=== PATIENT | male | born 1955 | race Caucasian/White ===

== ENCOUNTER 2020-11-27 14:18 | Inpatient (IN) | payer MEDICARE ==
[~2020-11-27] VITALS: Ht 170.2 cm; Wt 98.2 kg
--- NOTE | 2020-11-27 14:31 | NUR ---
THIS IS A 65 YO M BIB EMS (FLIGHT) FROM [facility] W/ DX RT LOWER EXTREMITY DVT, INCRASED OXYGEN DEMAND FROM BASELINE, ELEVATED TROPONIN AND ELEVATED DDIMER. PT REPORTS HX COPD USING 3-4L NC AT HOME. ALSO REPORTS HX OF CKD. PT ARRIVED ON 15L NRB W/ O2 SAT 91%. HR 90'S, TACHPNEIC, OTHER VS WDL. EKG OBTAINED AND GIVEN TO . PER EMS PT RECEIVED LEVAQUIN AND SUBQ LOVENOX PRIOR TO TRANSFER.
[2020-11-27] MEDS ORDERED: LISI-167 PO (14:45)
[2020-11-27] MEDS ORDERED: ASPI81TA45 PO (14:45)
[2020-11-27] MEDS ORDERED: ISOS30TA21 PO (14:45)
[2020-11-27] MEDS ORDERED: AMLO-211 PO (14:45)
[2020-11-27] MEDS ORDERED: MELO15TA24 PO (14:45)
[2020-11-27] MEDS ORDERED: ATOR-2 PO (14:45)
[2020-11-27] MEDS ORDERED: GABA100C PO (14:45)
[2020-11-27] MEDS ORDERED: ALBU90AE INH (14:45)
[2020-11-27] MEDS ORDERED: FLUT1BLS3 IH (14:45)
[2020-11-27] MEDS ORDERED: PANT40TA3 PO (14:45)
--- NOTE | 2020-11-27 14:46 | NUR ---
PT TRIALED ON HOME O2. 83% ON 4L NC. REQUIRING 10-15L NRB TO MAINTAIN SAT 89-91%.
--- NOTE | 2020-11-27 15:00 | NUR ---
WHILE THIS RN ATTEMPTING REPEAT EKG PT STARTED UNCONTROLABLY COUGHING. PT SAT UP THEN APPEARED TO LOSE CONCIOUSNESS FOR 5-7 SECONDS AEB EYES ROLLING BACK. SLIGHT FLAILING OF ARMS. WHEN PATIENT AWOKE HE SUDDENLY SAT UP AND STATED " I DIDNT DO ANYTHING, I WAS ASLEEP!". PT TRYING TO TAKE MASK OFF. PT QUICKLY REORIENTED TO SITUATION. DENIES CP. ERP AWARE. 2ND EKG OBTAINED AND GIVEN TO .
--- NOTE | 2020-11-27 15:01 | NUR ---
PT MORE DIAPHORETIC AND TACHYPNEIC S/P VAGAL EPISODE.
[2020-11-27 15:27] LABS: TROPONIN I 0.191 ng/mL (0.000-0.045)
--- NOTE | 2020-11-27 15:37 | NUR ---
PT RESTING ON GURNEY W/ CALL LIGHT IN REACH AND SIDE RAILS UPX2. 2ND PIV ESTABLISHED. DUNCAN ROBERTS.
--- NOTE | 2020-11-27 15:41 | NUR ---
LABS HUMAN RESOURCES ANALYST: ABG PCO2: 27 ABG PO2: 46 (REF [id number]) ABG HCO3: 19 WBC: 10.2 POTASSIUM: 4.7 CREATININE: 2.0 BUN: 35 RAPID COVID NEGATIVE
--- NOTE | 2020-11-27 16:02 | NUR ---
PT TO VQ SCAN.
[2020-11-27] MEDS ORDERED: HEPARIN 25,000 UNITS/250ML PMX 250 ML IV PRN (16:30)
[2020-11-27] MEDS ORDERED: HEPARIN 5,000 UNITS/ML, 1ML IV PRN (16:30)
[2020-11-27] MEDS: HEPARIN 5,000 UNITS/ML, 1ML IV ONE ×2 (16:30→16:46)
[2020-11-27] MEDS ORDERED: HEPARIN 25,000 UNITS/250ML PMX 250 ML ONE (16:33)
[2020-11-27] MEDS ORDERED: HEPARIN 5,000 UNITS/ML, 1ML ONE (16:33)
--- NOTE | 2020-11-27 16:56 | NUR ---
SPOKE W/ [place] FROM PHARMACY REGARDING ANTI XA LEVEL 0.51, D/T PT RECEIVING 80MG LOVENOX SUBQ @1300 ADVISED TO CONSULT W/ . PER , HOLD BOLUS BUT CONTINUE W/ WEIGHT BASED PROTOCOL.
--- NOTE | 2020-11-27 16:59 | NUR ---
HEPARIN STARTED, VERIFIED W/ GIANNI ARMSTRONG.
--- NOTE | 2020-11-27 17:22 | NUR ---
PT TITRATED DOWN TO 10L NRB AT THIS TIME.
[2020-11-27] MEDS ORDERED: SODIUM CHLORIDE FLUSH 10ML SYR IVF PRN (17:30)
[2020-11-27] MEDS ORDERED: NITROGLYCERIN 0.4 MG BOTTLE (25 TABS) SL PRN (18:00)
[2020-11-27] MEDS ORDERED: ONDANSETRON 2MG/ML, 2ML IVPush PRN (18:00)
[2020-11-27] MEDS ORDERED: OXYcodone IR 5MG TABLET PO PRN (18:00)
[2020-11-27] MEDS ORDERED: hydrALAzine 20 MG/ML, 1ML IVPush PRN (18:00)
[2020-11-27] MEDS ORDERED: BISACODYL 10 MG SUPP PR PRN (18:00)
[2020-11-27] MEDS ORDERED: POLYETHYLENE GLYCOL 17 GM PACKET PO PRN (18:00)
--- NOTE | 2020-11-27 18:55 | NUR ---
REPORT TO HUAN ARMSTRONG. PT RESTING ON [employer] W/ CALL LIGHT IN REACH AND SIDE RAILS UPX2. RESP EVEN AND UNLABORED, DUNCAN.
--- NOTE | 2020-11-27 18:56 | NUR ---
Report received from NATHANIEL Agee. This RN to assume care.
--- NOTE | 2020-11-27 20:16 | NUR ---
Report given to NATHANIEL Meier. Patient to be transferred to room 509-1.
[2020-11-27] MEDS: ATORVASTATIN 40 MG TABLET PO SCH (21:00)
[2020-11-27] MEDS: SODIUM CHLORIDE FLUSH 10ML SYR IVF SCH (21:00)
[2020-11-27] MEDS: GABAPENTIN 100 MG CAPSULE PO SCH (22:27)
[2020-11-27 22:36] LABS: TROPONIN I 0.142 ng/mL (0.000-0.045)
[2020-11-28 02:25] VITALS: BP 115/71
[2020-11-28] MEDS: ALBUTEROL/IPRATROPIUM 2.5MG/0.5MG, 3 ML NPPB SCH ×3 (02:28→21:00)
[2020-11-28 04:07] LABS: ANION GAP 6 mmol/L (5-15); CALCIUM 9.2 mg/dL (8.5-10.1); CHLORIDE 106 mmol/L (98-107); CHOLESTEROL, TOTAL 130 mg/dL (140-239); CREATININE 1.55 mg/dL (0.7-1.3)
[2020-11-28 04:12] LABS: CHOL/HDL RATIO 3.9; HDL CHOL % 25 % (26-37); HDL CHOLESTEROL (DIRECT) 33 mg/dL (40-60); LDL CHOLESTEROL,CALCULATED 73 mg/dL (54-169); LDL/HDL RATIO 2.2 (0.5-3.0); TRIGLYCERIDES 119 mg/dL (50-200); TROPONIN I 0.125 ng/mL (0.000-0.045); VLDL CHOLESTEROL 24 mg/dL (0-25)
[2020-11-28 06:17] LABS: BASOPHILS % (AUTO) 1 % (0-1); EOSINOPHILS % (AUTO) 1 % (1-7); LYMPHOCYTES % (AUTO) 10 % (22-44); MEAN CORPUSCULAR HEMOGLOBIN 31.3 pg (27.5-34.5); MEAN CORPUSCULAR HGB CONC 33.5 g/dL (33.2-36.2); MEAN PLATELET VOLUME 8.3 fL (7.4-10.4); MONOCYTES % (AUTO) 8 % (2-9); NEUTROPHILS % (AUTO) 80 % (42-75); PLATELET COUNT 201 x10^3/uL (130-400); RED BLOOD COUNT 5.27 x10^6/uL (4.38-5.82); RED CELL DISTRIBUTION WIDTH 14.5 % (9.4-14.8)
[2020-11-28] MEDS ORDERED: PANTOPRAZOLE 40MG TABLET PO SCH (07:00)
[2020-11-28] MEDS: GABAPENTIN 100 MG CAPSULE PO SCH ×2 (08:15→21:30)
[2020-11-28] MEDS: SENNA/DOCUSATE TABLET PO SCH (08:15)
[2020-11-28] MEDS: SODIUM CHLORIDE FLUSH 10ML SYR IVF SCH ×2 (08:15→21:31)
[2020-11-28] MEDS: ASPIRIN 81 MG TABLET EC PO SCH (08:15)
[2020-11-28] MEDS: MELOXICAM 15 MG TABLET PO SCH (08:15)
[2020-11-28] MEDS ORDERED: LISINOPRIL 20 MG TABLET PO SCH (09:00)
[2020-11-28] MEDS ORDERED: AMLODIPINE 10 MG TAB PO SCH (09:00)
[2020-11-28] MEDS ORDERED: ISOSORBIDE MONONITRATE ER 30 MG TABLET PO SCH (09:00)
[2020-11-28 09:43] VITALS: BP 99/63
[2020-11-28] MEDS ORDERED: ALTEPLASE 10 MG in SODIUM CHLORIDE 0.9% 240 ML IV ONE (10:30)
[2020-11-28] MEDS ORDERED: MIDAZOLAM 1 MG/ML, 2ML ONE (13:29)
[2020-11-28] MEDS ORDERED: LIDOCAINE 2%, 20ML ONE (13:29)
[2020-11-28] MEDS ORDERED: FENTANYL PF 100 MCG/2ML ONE (13:29)
[2020-11-28] MEDS ORDERED: SODIUM CHLORIDE FLUSH 3ML SYRINGE IVF PRN (14:30)
[2020-11-28] MEDS ORDERED: Heparin 1000 units/500 ml 500 ML IV SCH ×2 (14:30→16:23)
[2020-11-28] MEDS ORDERED: SODIUM CHLORIDE 0.9% 1,000 ML IV SCH (14:30)
[2020-11-28] MEDS: BUDESONIDE 0.5 MG/2 ML INHA INH SCH ×2 (15:33→21:00)
[2020-11-28] MEDS ORDERED: HEPARIN 25,000 UNITS/250ML PMX 250 ML IV PRN (16:23)
[2020-11-28] MEDS ORDERED: APIXABAN 5 MG TABLET PO SCH ×2 (18:00→21:00)
[2020-11-28] MEDS: APIXABAN 5 MG TABLET PO SCH (18:00)
[2020-11-28] MEDS: ATORVASTATIN 40 MG TABLET PO SCH (21:31)
[2020-11-28] MEDS ORDERED: LORazepam 2 MG/ML, 1ML IVPush ONE (23:30)
[2020-11-28] MEDS ORDERED: LORazepam 2 MG/ML, 1ML ONE (23:33)
[2020-11-29 00:02] LABS: BASOPHILS % (AUTO) 1 % (0-1); EOSINOPHILS % (AUTO) 0 % (1-7); LYMPHOCYTES % (AUTO) 5 % (22-44); MEAN CORPUSCULAR HEMOGLOBIN 31.1 pg (27.5-34.5); MEAN CORPUSCULAR HGB CONC 33.2 g/dL (33.2-36.2); MEAN PLATELET VOLUME 8.1 fL (7.4-10.4); MONOCYTES % (AUTO) 7 % (2-9); NEUTROPHILS % (AUTO) 88 % (42-75); PLATELET COUNT 182 x10^3/uL (130-400); RED BLOOD COUNT 4.94 x10^6/uL (4.38-5.82); RED CELL DISTRIBUTION WIDTH 14.1 % (9.4-14.8)
[2020-11-29] MEDS ORDERED: MIDAZOLAM 1 MG/ML, 5ML IVPush ONE (00:13)
[2020-11-29] MEDS ORDERED: ROCURONIUM 10 MG/ML,10ML IVPush ONE (00:14)
[2020-11-29] MEDS ORDERED: PROPOFOL 10 MG/ML, 20ML IV ONE (00:14)
[2020-11-29 00:27] LABS: FIBRINOGEN 396 mg/dL (200-340)
[2020-11-29] MEDS ORDERED: PHARMACY MAY ADJ FOR RENAL FX MC SCH (00:30)
[2020-11-29] MEDS ORDERED: SENNA 176 MG/5 ML ORAL SOL NG PRN (00:30)
[2020-11-29] MEDS ORDERED: SENNA/DOCUSATE TABLET NG PRN (00:30)
[2020-11-29] MEDS ORDERED: BISACODYL 10 MG SUPP PR PRN (00:30)
[2020-11-29] MEDS ORDERED: LIDOCAINE-MPF 1%, 2ML ENDO PRN (00:30)
[2020-11-29] MEDS ORDERED: LACTULOSE 20 GM/30 ML UDC NG PRN (00:30)
[2020-11-29] MEDS: PROPOFOL 100 ML IV PRN ×2 (00:47→19:19)
[2020-11-29 01:17] LABS: ANION GAP 8 mmol/L (5-15); CALCIUM 8.6 mg/dL (8.5-10.1); CHLORIDE 106 mmol/L (98-107); CREATININE 1.25 mg/dL (0.7-1.3); TRIGLYCERIDES 100 mg/dL (50-200)
[2020-11-29] MEDS ORDERED: ALBUTEROL-IPRATROPIUM MDI INH INH SCH (03:00)
[2020-11-29 04:26] LABS: BASOPHILS % (AUTO) 0 % (0-1); EOSINOPHILS % (AUTO) 0 % (1-7); LYMPHOCYTES % (AUTO) 3 % (22-44); MEAN CORPUSCULAR HEMOGLOBIN 31.2 pg (27.5-34.5); MEAN PLATELET VOLUME 8.6 fL (7.4-10.4); MONOCYTES % (AUTO) 7 % (2-9); NEUTROPHILS % (AUTO) 89 % (42-75); PLATELET COUNT 205 x10^3/uL (130-400); RED BLOOD COUNT 5.01 x10^6/uL (4.38-5.82); RED CELL DISTRIBUTION WIDTH 14.1 % (9.4-14.8)
[2020-11-29 04:43] LABS: CHLORIDE 106 mmol/L (98-107)
[2020-11-29 05:00] LABS: ALANINE AMINOTRANSFERASE 24 U/L (12-78); ALBUMIN 2.6 g/dL (3.4-5.0); ALKALINE PHOSPHATASE 76 U/L (45-117); ANION GAP 6 mmol/L (5-15); BILIRUBIN,TOTAL 1.6 mg/dL (0.2-1.0); CALCIUM 8.7 mg/dL (8.5-10.1); CREATININE 1.39 mg/dL (0.7-1.3); TOTAL PROTEIN 7.2 g/dL (6.4-8.2)
[2020-11-29] MEDS ORDERED: PROPOFOL 10 MG/ML, 100ML IV ONE (05:10)
[2020-11-29] MEDS ORDERED: MIDAZOLAM 1 MG/ML, 5ML ONE (05:10)
[2020-11-29] MEDS ORDERED: ROCURONIUM 10MG/ML,5ML ONE (05:10)
[2020-11-29] MEDS ORDERED: PROPOFOL 10 MG/ML, 20ML ONE (05:10)
[2020-11-29] MEDS ORDERED: SODIUM CHLORIDE 0.9%, 500ML IVBOLUS ONE (05:30)
[2020-11-29] MEDS ORDERED: PANTOPRAZOLE 40 MG IV ONE (05:42)
[2020-11-29] MEDS: PANTOPRAZOLE 40 MG IV IVPush SCH ×2 (05:45→18:17)
[2020-11-29] MEDS: ALBUTEROL/IPRATROPIUM 2.5MG/0.5MG, 3 ML HHN SCH ×3 (09:00→20:05)
[2020-11-29] MEDS ORDERED: FLUTICASONE/VILANTEROL 100-25MCG/INH INH SCH (09:00)
[2020-11-29 10:42] LABS: BASOPHILS % (AUTO) 0 % (0-1); EOSINOPHILS % (AUTO) 0 % (1-7); LYMPHOCYTES % (AUTO) 7 % (22-44); MEAN CORPUSCULAR HEMOGLOBIN 30.8 pg (27.5-34.5); MEAN CORPUSCULAR HGB CONC 32.7 g/dL (33.2-36.2); MEAN PLATELET VOLUME 8.4 fL (7.4-10.4); MONOCYTES % (AUTO) 7 % (2-9); NEUTROPHILS % (AUTO) 86 % (42-75); PLATELET COUNT 201 x10^3/uL (130-400); RED BLOOD COUNT 4.64 x10^6/uL (4.38-5.82); RED CELL DISTRIBUTION WIDTH 14.6 % (9.4-14.8)
[2020-11-29] MEDS: SODIUM ZIRCONIUM CYCLOSILICATE 10 GM PO SCH ×2 (11:01→20:16)
[2020-11-29] MEDS: GABAPENTIN 100 MG CAPSULE PO SCH ×2 (11:01→20:16)
[2020-11-29] MEDS: APIXABAN 5 MG TABLET PO SCH ×2 (11:01→20:16)
[2020-11-29] MEDS: ASPIRIN 81 MG TABLET EC PO SCH (11:01)
[2020-11-29] MEDS: SENNA/DOCUSATE TABLET PO SCH (11:01)
[2020-11-29] MEDS: MELOXICAM 15 MG TABLET PO SCH (11:01)
[2020-11-29 11:13] LABS: FIBRINOGEN 442 mg/dL (200-340)
[2020-11-29] MEDS: SODIUM CHLORIDE FLUSH 10ML SYR IVF SCH ×2 (11:16→19:17)
--- NOTE | 2020-11-29 11:48 | NUR ---
TF recs if needed: Vital HP with end goal rate of 50 mL/hr (ON propofol); 60 mL/hr (OFF propofol). Addendum: 11/29/20 at [address] Amended: Links added.
[2020-11-29] MEDS: BUDESONIDE 0.5 MG/2 ML INHA INH SCH ×2 (13:05→20:06)
[2020-11-29] MEDS: NOREPINEPHRINE 8 MG in SODIUM CHLORIDE 0.9% 242 ML IV PRN (14:10)
[2020-11-29] MEDS: SODIUM CHLORIDE 0.9% 1,000 ML IV SCH (14:15)
[2020-11-29] MEDS: FENTANYL PF 100 MCG/2ML IVPush PRN (15:55)
[2020-11-29] MEDS: ATORVASTATIN 40 MG TABLET PO SCH (20:16)
[2020-11-30] MEDS: SODIUM CHLORIDE 0.9% 1,000 ML IV SCH ×3 (00:23→18:54)
[2020-11-30] MEDS: PROPOFOL 100 ML IV PRN ×5 (01:23→23:13)
[2020-11-30] MEDS: ALBUTEROL/IPRATROPIUM 2.5MG/0.5MG, 3 ML HHN SCH ×4 (01:50→20:18)
[2020-11-30 03:28] LABS: BASOPHILS % (AUTO) 1 % (0-1); EOSINOPHILS % (AUTO) 2 % (1-7); LYMPHOCYTES % (AUTO) 8 % (22-44); MEAN CORPUSCULAR HEMOGLOBIN 31.3 pg (27.5-34.5); MEAN CORPUSCULAR HGB CONC 33.2 g/dL (33.2-36.2); MEAN PLATELET VOLUME 8.3 fL (7.4-10.4); MONOCYTES % (AUTO) 8 % (2-9); NEUTROPHILS % (AUTO) 82 % (42-75); PLATELET COUNT 191 x10^3/uL (130-400); RED BLOOD COUNT 4.22 x10^6/uL (4.38-5.82); RED CELL DISTRIBUTION WIDTH 14.3 % (9.4-14.8)
[2020-11-30 03:30] LABS: ANION GAP 7 mmol/L (5-15); CALCIUM 8.4 mg/dL (8.5-10.1); CHLORIDE 111 mmol/L (98-107); CREATININE 1.42 mg/dL (0.7-1.3)
[2020-11-30] MEDS: PANTOPRAZOLE 40 MG IV IVPush SCH ×2 (05:49→18:55)
[2020-11-30] MEDS: BUDESONIDE 0.5 MG/2 ML INHA INH SCH ×2 (09:00→20:18)
[2020-11-30] MEDS: SODIUM CHLORIDE FLUSH 10ML SYR IVF SCH ×2 (09:00→21:04)
[2020-11-30] MEDS ORDERED: ASPIRIN 81 MG TABLET CHEW ONE (10:22)
[2020-11-30] MEDS: MELOXICAM 15 MG TABLET PO SCH (10:32)
[2020-11-30] MEDS: SENNA/DOCUSATE TABLET PO SCH (10:32)
[2020-11-30] MEDS: APIXABAN 5 MG TABLET PO SCH ×2 (10:32→21:04)
[2020-11-30] MEDS: GABAPENTIN 100 MG CAPSULE PO SCH ×2 (10:33→21:04)
[2020-11-30] MEDS: ASPIRIN 81 MG TABLET EC PO SCH (10:34)
[2020-11-30] MEDS: ATORVASTATIN 40 MG TABLET PO SCH (21:04)
[2020-11-30] MEDS: FENTANYL PF 100 MCG/2ML IVPush PRN (23:15)
[2020-12-01] MEDS: ALBUTEROL/IPRATROPIUM 2.5MG/0.5MG, 3 ML HHN SCH ×4 (01:30→19:41)
[2020-12-01 04:16] LABS: BASOPHILS % (AUTO) 1 % (0-1); EOSINOPHILS % (AUTO) 1 % (1-7); LYMPHOCYTES % (AUTO) 6 % (22-44); MEAN CORPUSCULAR HEMOGLOBIN 31.1 pg (27.5-34.5); MEAN CORPUSCULAR HGB CONC 32.9 g/dL (33.2-36.2); MEAN PLATELET VOLUME 8.3 fL (7.4-10.4); MONOCYTES % (AUTO) 7 % (2-9); NEUTROPHILS % (AUTO) 85 % (42-75); PLATELET COUNT 216 x10^3/uL (130-400); RED BLOOD COUNT 4.31 x10^6/uL (4.38-5.82); RED CELL DISTRIBUTION WIDTH 14.1 % (9.4-14.8)
[2020-12-01 04:22] LABS: ANION GAP 7 mmol/L (5-15); CALCIUM 8.3 mg/dL (8.5-10.1); CHLORIDE 112 mmol/L (98-107); CREATININE 1.23 mg/dL (0.7-1.3)
[2020-12-01] MEDS: PROPOFOL 100 ML IV PRN ×5 (04:30→23:30)
[2020-12-01] MEDS: SODIUM CHLORIDE 0.9% 1,000 ML IV SCH (06:25)
[2020-12-01] MEDS: PANTOPRAZOLE 40 MG IV IVPush SCH ×2 (06:25→18:12)
[2020-12-01] MEDS: BUDESONIDE 0.5 MG/2 ML INHA INH SCH ×2 (07:10→19:41)
[2020-12-01] MEDS ORDERED: ASPIRIN 81 MG TABLET CHEW ONE (09:00)
[2020-12-01] MEDS: SODIUM CHLORIDE FLUSH 10ML SYR IVF SCH ×2 (09:00→21:12)
[2020-12-01] MEDS: PIPERACILLIN/TAZO 4.5 GM in DEXTROSE 5% 100 ML IV SCH ×3 (09:13→23:31)
[2020-12-01] MEDS: GABAPENTIN 100 MG CAPSULE PO SCH ×2 (09:14→21:12)
[2020-12-01] MEDS: APIXABAN 5 MG TABLET PO SCH ×2 (09:14→21:12)
[2020-12-01] MEDS: SENNA/DOCUSATE TABLET PO SCH (09:14)
[2020-12-01] MEDS: MELOXICAM 15 MG TABLET PO SCH (09:14)
[2020-12-01] MEDS: ACETAMINOPHEN 325 MG TABLET PO PRN (09:14)
[2020-12-01] MEDS: ASPIRIN 81 MG TABLET EC PO SCH (09:15)
[2020-12-01] MEDS: NOREPINEPHRINE 8 MG in SODIUM CHLORIDE 0.9% 242 ML IV PRN (12:22)
[2020-12-01] MEDS: ATORVASTATIN 40 MG TABLET PO SCH (21:12)
[2020-12-02] MEDS: ALBUTEROL/IPRATROPIUM 2.5MG/0.5MG, 3 ML HHN SCH ×4 (02:39→18:47)
[2020-12-02 04:45] LABS: BASOPHILS % (AUTO) 1 % (0-1); EOSINOPHILS % (AUTO) 3 % (1-7); LYMPHOCYTES % (AUTO) 5 % (22-44); MEAN CORPUSCULAR HEMOGLOBIN 31.5 pg (27.5-34.5); MEAN CORPUSCULAR HGB CONC 33.5 g/dL (33.2-36.2); MEAN PLATELET VOLUME 8.2 fL (7.4-10.4); MONOCYTES % (AUTO) 7 % (2-9); NEUTROPHILS % (AUTO) 85 % (42-75); PLATELET COUNT 242 x10^3/uL (130-400); RED BLOOD COUNT 4.29 x10^6/uL (4.38-5.82); RED CELL DISTRIBUTION WIDTH 14.5 % (9.4-14.8)
[2020-12-02 04:53] LABS: ANION GAP 6 mmol/L (5-15); CALCIUM 8.4 mg/dL (8.5-10.1); CHLORIDE 113 mmol/L (98-107); CREATININE 1.06 mg/dL (0.7-1.3); TRIGLYCERIDES 136 mg/dL (50-200)
[2020-12-02] MEDS: PANTOPRAZOLE 40 MG IV IVPush SCH ×2 (05:06→17:57)
[2020-12-02] MEDS: PROPOFOL 100 ML IV PRN ×4 (05:38→23:18)
[2020-12-02] MEDS: BUDESONIDE 0.5 MG/2 ML INHA INH SCH ×2 (06:36→18:47)
[2020-12-02] MEDS: ACETAMINOPHEN 325 MG TABLET PO PRN (06:45)
[2020-12-02] MEDS: PIPERACILLIN/TAZO 4.5 GM in DEXTROSE 5% 100 ML IV SCH ×3 (08:18→23:17)
[2020-12-02] MEDS: GABAPENTIN 100 MG CAPSULE PO SCH ×2 (08:50→20:12)
[2020-12-02] MEDS: MELOXICAM 15 MG TABLET PO SCH (08:50)
[2020-12-02] MEDS: SENNA/DOCUSATE TABLET PO SCH (08:50)
[2020-12-02] MEDS: APIXABAN 5 MG TABLET PO SCH ×2 (08:50→20:12)
[2020-12-02] MEDS: SODIUM CHLORIDE FLUSH 10ML SYR IVF SCH ×2 (08:51→20:12)
[2020-12-02] MEDS ORDERED: ASPIRIN 81 MG TABLET CHEW PO SCH ×2 (09:00)
--- NOTE | 2020-12-02 15:05 | NUR ---
TF per RD recs: Vital HP with end goal rate of 50 mL/hr (ON propofol); 60 mL/hr (OFF propofol) Addendum: 12/02/20 at [address] Amended: Links added.
[2020-12-02] MEDS: ATORVASTATIN 40 MG TABLET PO SCH (20:12)
[2020-12-03] MEDS: ALBUTEROL/IPRATROPIUM 2.5MG/0.5MG, 3 ML HHN SCH (01:18)
[2020-12-03] MEDS ORDERED: AMIODARONE 150 MG in DEXTROSE 5% 100 ML IV ONE ×2 (05:00→09:00)
[2020-12-03] MEDS ORDERED: FILTER 0.22 MICRON IV PRN (05:00)
[2020-12-03 05:20] LABS: BASOPHILS % (AUTO) 1 % (0-1); EOSINOPHILS % (AUTO) 3 % (1-7); LYMPHOCYTES % (AUTO) 5 % (22-44); MEAN CORPUSCULAR HEMOGLOBIN 31.4 pg (27.5-34.5); MEAN CORPUSCULAR HGB CONC 33.4 g/dL (33.2-36.2); MEAN PLATELET VOLUME 8.2 fL (7.4-10.4); MONOCYTES % (AUTO) 7 % (2-9); NEUTROPHILS % (AUTO) 84 % (42-75); PLATELET COUNT 254 x10^3/uL (130-400); RED CELL DISTRIBUTION WIDTH 14.6 % (9.4-14.8)
[2020-12-03] MEDS: AMIODARONE 450 MG in DEXTROSE 5% 241 ML IV PRN ×2 (05:26→16:07)
[2020-12-03] MEDS: ACETAMINOPHEN 325 MG TABLET PO PRN ×2 (05:29→22:25)
[2020-12-03] MEDS: PANTOPRAZOLE 40 MG IV IVPush SCH ×2 (05:29→18:18)
[2020-12-03 05:34] LABS: ANION GAP 5 mmol/L (5-15); CALCIUM 8.8 mg/dL (8.5-10.1); CHLORIDE 112 mmol/L (98-107); CREATININE 1.06 mg/dL (0.7-1.3)
[2020-12-03] MEDS: SENNA/DOCUSATE TABLET PO SCH (08:09)
[2020-12-03] MEDS: GABAPENTIN 100 MG CAPSULE PO SCH ×2 (08:09→20:06)
[2020-12-03] MEDS: PIPERACILLIN/TAZO 4.5 GM in DEXTROSE 5% 100 ML IV SCH ×2 (08:09→16:07)
[2020-12-03] MEDS: MELOXICAM 15 MG TABLET PO SCH (08:10)
[2020-12-03] MEDS: APIXABAN 5 MG TABLET PO SCH ×2 (08:10→20:06)
[2020-12-03] MEDS: SODIUM CHLORIDE FLUSH 10ML SYR IVF SCH (08:10)
[2020-12-03] MEDS ORDERED: AMIODARONE 50 MG/ML, 3ML IVPush ONE (09:00)
[2020-12-03] MEDS: BUDESONIDE 0.5 MG/2 ML INHA INH SCH ×2 (09:00→18:33)
[2020-12-03] MEDS: PROPOFOL 100 ML IV PRN ×2 (13:23→20:06)
[2020-12-03] MEDS: ATORVASTATIN 40 MG TABLET PO SCH (20:05)
[2020-12-04] MEDS: PIPERACILLIN/TAZO 4.5 GM in DEXTROSE 5% 100 ML IV SCH (00:08)
[2020-12-04] MEDS: PROPOFOL 100 ML IV PRN ×4 (03:36→20:41)
[2020-12-04] MEDS: PANTOPRAZOLE 40 MG IV IVPush SCH ×2 (05:14→17:07)
[2020-12-04 05:20] LABS: BASOPHILS % (AUTO) 1 % (0-1); EOSINOPHILS % (AUTO) 4 % (1-7); LYMPHOCYTES % (AUTO) 4 % (22-44); MEAN CORPUSCULAR HEMOGLOBIN 30.9 pg (27.5-34.5); MEAN PLATELET VOLUME 8.3 fL (7.4-10.4); MONOCYTES % (AUTO) 7 % (2-9); NEUTROPHILS % (AUTO) 84 % (42-75); PLATELET COUNT 293 x10^3/uL (130-400); RED BLOOD COUNT 4.14 x10^6/uL (4.38-5.82); RED CELL DISTRIBUTION WIDTH 14.7 % (9.4-14.8)
[2020-12-04 05:28] LABS: ANION GAP 4 mmol/L (5-15); CALCIUM 8.7 mg/dL (8.5-10.1); CHLORIDE 108 mmol/L (98-107); CREATININE 1.03 mg/dL (0.7-1.3)
[2020-12-04] MEDS: BUDESONIDE 0.5 MG/2 ML INHA INH SCH ×2 (06:30→19:22)
[2020-12-04] MEDS ORDERED: INSULIN LISPRO 100 UNITS/ML, PEN SQ-INSULIN SCH (07:00)
[2020-12-04] MEDS ORDERED: FILTER 0.22 MICRON IV PRN (08:32)
[2020-12-04] MEDS: INSULIN LISPRO 100 UNITS/ML, PEN SQ-INSULIN SCH ×3 (09:00→19:54)
[2020-12-04] MEDS ORDERED: AMIODARONE 450 MG in DEXTROSE 5% 241 ML IV PRN (09:00)
[2020-12-04] MEDS: MEROPENEM 1 GM in SODIUM CHLORIDE 0.9% 100 ML IV SCH ×2 (09:36→17:07)
[2020-12-04] MEDS: APIXABAN 5 MG TABLET PO SCH ×2 (09:37→19:52)
[2020-12-04] MEDS: MELOXICAM 15 MG TABLET PO SCH (09:37)
[2020-12-04] MEDS: SENNA/DOCUSATE TABLET PO SCH (09:37)
[2020-12-04] MEDS: AMIODARONE 200 MG TABLET PO SCH ×2 (09:38→19:52)
[2020-12-04] MEDS: GABAPENTIN 100 MG CAPSULE PO SCH ×2 (09:38→19:52)
[2020-12-04] MEDS: FUROSEMIDE 40 MG/4 ML IV SCH (17:07)
[2020-12-04] MEDS: ATORVASTATIN 40 MG TABLET PO SCH (19:52)
[2020-12-04] MEDS: POTASSIUM CHLORIDE 10% 20 MEQ/15 ML UDC PO SCH (19:56)
[2020-12-05] MEDS: PROPOFOL 100 ML IV PRN ×4 (00:41→17:33)
[2020-12-05] MEDS: MEROPENEM 1 GM in SODIUM CHLORIDE 0.9% 100 ML IV SCH ×3 (01:08→17:36)
[2020-12-05] MEDS: INSULIN LISPRO 100 UNITS/ML, PEN SQ-INSULIN SCH ×4 (04:10→22:13)
[2020-12-05 04:25] LABS: BASOPHILS % (AUTO) 0 % (0-1); EOSINOPHILS % (AUTO) 5 % (1-7); LYMPHOCYTES % (AUTO) 7 % (22-44); MEAN CORPUSCULAR HEMOGLOBIN 30.9 pg (27.5-34.5); MEAN CORPUSCULAR HGB CONC 33.3 g/dL (33.2-36.2); MEAN PLATELET VOLUME 8.5 fL (7.4-10.4); MONOCYTES % (AUTO) 9 % (2-9); NEUTROPHILS % (AUTO) 79 % (42-75); PLATELET COUNT 307 x10^3/uL (130-400); RED BLOOD COUNT 4.23 x10^6/uL (4.38-5.82); RED CELL DISTRIBUTION WIDTH 14.6 % (9.4-14.8)
[2020-12-05 04:33] LABS: ANION GAP 5 mmol/L (5-15); CALCIUM 8.8 mg/dL (8.5-10.1); CHLORIDE 111 mmol/L (98-107); CREATININE 0.97 mg/dL (0.7-1.3)
[2020-12-05 04:34] LABS: TRIGLYCERIDES 183 mg/dL (50-200)
[2020-12-05] MEDS: PANTOPRAZOLE 40 MG IV IVPush SCH ×2 (06:24→17:33)
[2020-12-05] MEDS: BUDESONIDE 0.5 MG/2 ML INHA INH SCH ×2 (06:43→19:15)
[2020-12-05] MEDS: FUROSEMIDE 40 MG/4 ML IV SCH ×2 (08:15→17:33)
[2020-12-05] MEDS: SENNA/DOCUSATE TABLET PO SCH (08:34)
[2020-12-05] MEDS: APIXABAN 5 MG TABLET PO SCH ×2 (09:10→22:22)
[2020-12-05] MEDS: AMIODARONE 200 MG TABLET PO SCH ×2 (09:10→22:23)
[2020-12-05] MEDS: MELOXICAM 15 MG TABLET PO SCH (09:10)
[2020-12-05] MEDS: GABAPENTIN 100 MG CAPSULE PO SCH ×2 (09:11→22:22)
[2020-12-05] MEDS: POTASSIUM CHLORIDE 10% 20 MEQ/15 ML UDC PO SCH ×2 (09:11→22:22)
[2020-12-05] MEDS: ACETAMINOPHEN 325 MG TABLET PO PRN (10:54)
[2020-12-05] MEDS: MIDODRINE 5 MG TABLET PO SCH ×3 (11:56→22:22)
[2020-12-05] MEDS ORDERED: ALBUMIN HUMAN 25% 100 ML IV ONE (12:00)
[2020-12-05] MEDS: ATORVASTATIN 40 MG TABLET PO SCH (22:22)
[2020-12-06] MEDS: MEROPENEM 1 GM in SODIUM CHLORIDE 0.9% 100 ML IV SCH ×3 (00:25→16:50)
[2020-12-06] MEDS: INSULIN LISPRO 100 UNITS/ML, PEN SQ-INSULIN SCH ×4 (04:36→21:05)
[2020-12-06 04:56] LABS: BASOPHILS % (AUTO) 1 % (0-1); EOSINOPHILS % (AUTO) 5 % (1-7); LYMPHOCYTES % (AUTO) 8 % (22-44); MEAN CORPUSCULAR HEMOGLOBIN 30.7 pg (27.5-34.5); MEAN CORPUSCULAR HGB CONC 32.8 g/dL (33.2-36.2); MEAN PLATELET VOLUME 9.2 fL (7.4-10.4); MONOCYTES % (AUTO) 10 % (2-9); NEUTROPHILS % (AUTO) 75 % (42-75); PLATELET COUNT 318 x10^3/uL (130-400); RED BLOOD COUNT 4.09 x10^6/uL (4.38-5.82); RED CELL DISTRIBUTION WIDTH 15.1 % (9.4-14.8)
[2020-12-06] MEDS: PROPOFOL 100 ML IV PRN ×4 (05:06→23:39)
[2020-12-06] MEDS: PANTOPRAZOLE 40 MG IV IVPush SCH ×2 (05:06→16:47)
[2020-12-06 05:07] LABS: CHLORIDE 109 mmol/L (98-107)
[2020-12-06 05:13] LABS: ANION GAP 6 mmol/L (5-15); CALCIUM 9.4 mg/dL (8.5-10.1)
[2020-12-06] MEDS: BUDESONIDE 0.5 MG/2 ML INHA INH SCH ×2 (06:31→19:30)
[2020-12-06] MEDS: GABAPENTIN 100 MG CAPSULE PO SCH ×2 (08:47→21:04)
[2020-12-06] MEDS: AMIODARONE 200 MG TABLET PO SCH ×2 (08:47→21:04)
[2020-12-06] MEDS: MELOXICAM 15 MG TABLET PO SCH (08:47)
[2020-12-06] MEDS: MIDODRINE 5 MG TABLET PO SCH ×3 (08:48→21:04)
[2020-12-06] MEDS: APIXABAN 5 MG TABLET PO SCH ×2 (08:48→21:04)
[2020-12-06] MEDS: ATORVASTATIN 40 MG TABLET PO SCH (21:04)
[2020-12-06] MEDS: SENNA/DOCUSATE TABLET PO SCH (21:08)
[2020-12-07] MEDS: MEROPENEM 1 GM in SODIUM CHLORIDE 0.9% 100 ML IV SCH ×3 (00:40→17:38)
[2020-12-07] MEDS: PROPOFOL 100 ML IV PRN ×4 (02:46→21:14)
[2020-12-07] MEDS: FENTANYL PF 100 MCG/2ML IVPush PRN (02:52)
[2020-12-07] MEDS: INSULIN LISPRO 100 UNITS/ML, PEN SQ-INSULIN SCH ×4 (04:19→21:55)
[2020-12-07 04:20] LABS: BASOPHILS % (AUTO) 0 % (0-1); EOSINOPHILS % (AUTO) 4 % (1-7); LYMPHOCYTES % (AUTO) 6 % (22-44); MEAN CORPUSCULAR HEMOGLOBIN 30.7 pg (27.5-34.5); MEAN CORPUSCULAR HGB CONC 33.1 g/dL (33.2-36.2); MEAN PLATELET VOLUME 8.9 fL (7.4-10.4); MONOCYTES % (AUTO) 11 % (2-9); NEUTROPHILS % (AUTO) 78 % (42-75); PLATELET COUNT 311 x10^3/uL (130-400); RED BLOOD COUNT 4.26 x10^6/uL (4.38-5.82); RED CELL DISTRIBUTION WIDTH 15.1 % (9.4-14.8)
[2020-12-07 04:33] LABS: CALCIUM 9.9 mg/dL (8.5-10.1); CREATININE 1.28 mg/dL (0.7-1.3)
[2020-12-07 05:16] LABS: ANION GAP 6 mmol/L (5-15); CHLORIDE 111 mmol/L (98-107)
[2020-12-07] MEDS: PANTOPRAZOLE 40 MG IV IVPush SCH ×2 (06:19→17:40)
[2020-12-07] MEDS: SENNA/DOCUSATE TABLET PO SCH (07:57)
[2020-12-07] MEDS: MIDODRINE 5 MG TABLET PO SCH ×3 (08:16→21:15)
[2020-12-07] MEDS: GABAPENTIN 100 MG CAPSULE PO SCH ×2 (08:17→21:15)
[2020-12-07] MEDS: APIXABAN 5 MG TABLET PO SCH ×2 (08:17→21:15)
[2020-12-07] MEDS: AMIODARONE 200 MG TABLET PO SCH ×2 (08:17→21:15)
[2020-12-07] MEDS: BUDESONIDE 0.5 MG/2 ML INHA INH SCH ×2 (09:00→19:18)
[2020-12-07] MEDS: ACETAMINOPHEN 325 MG TABLET PO PRN (16:10)
[2020-12-07] MEDS: ATORVASTATIN 40 MG TABLET PO SCH (21:15)
[2020-12-08] MEDS: MEROPENEM 1 GM in SODIUM CHLORIDE 0.9% 100 ML IV SCH ×3 (00:40→17:11)
[2020-12-08] MEDS: INSULIN LISPRO 100 UNITS/ML, PEN SQ-INSULIN SCH ×4 (04:00→22:00)
[2020-12-08] MEDS: PROPOFOL 100 ML IV PRN ×2 (04:28→20:03)
[2020-12-08 05:01] LABS: BASOPHILS % (AUTO) 1 % (0-1); EOSINOPHILS % (AUTO) 4 % (1-7); LYMPHOCYTES % (AUTO) 9 % (22-44); MEAN CORPUSCULAR HEMOGLOBIN 30.7 pg (27.5-34.5); MEAN CORPUSCULAR HGB CONC 32.9 g/dL (33.2-36.2); MEAN PLATELET VOLUME 9.1 fL (7.4-10.4); MONOCYTES % (AUTO) 12 % (2-9); NEUTROPHILS % (AUTO) 75 % (42-75); PLATELET COUNT 315 x10^3/uL (130-400); RED BLOOD COUNT 4.27 x10^6/uL (4.38-5.82); RED CELL DISTRIBUTION WIDTH 15.2 % (9.4-14.8)
[2020-12-08 05:06] LABS: ANION GAP 2 mmol/L (5-15); CHLORIDE 112 mmol/L (98-107); CREATININE 1.19 mg/dL (0.7-1.3); TRIGLYCERIDES 209 mg/dL (50-200)
[2020-12-08] MEDS: PANTOPRAZOLE 40 MG IV IVPush SCH ×2 (06:00→18:01)
[2020-12-08] MEDS: BUDESONIDE 0.5 MG/2 ML INHA INH SCH ×2 (06:55→21:00)
[2020-12-08] MEDS: SENNA/DOCUSATE TABLET PO SCH (08:11)
[2020-12-08] MEDS: APIXABAN 5 MG TABLET PO SCH (08:48)
[2020-12-08] MEDS: GABAPENTIN 100 MG CAPSULE PO SCH ×2 (08:48→20:04)
[2020-12-08] MEDS: AMIODARONE 200 MG TABLET PO SCH ×2 (08:48→20:04)
[2020-12-08] MEDS: MIDODRINE 5 MG TABLET PO SCH ×3 (08:48→20:03)
[2020-12-08] MEDS ORDERED: SENNA/DOCUSATE TABLET PO PRN (09:00)
[2020-12-08] MEDS ORDERED: [UNRECOGNIZED DRUG - OTHER] IV ONE (12:30)
[2020-12-08] MEDS ORDERED: HUM PROTHROMBIN CPLX IV ONE ×2 (12:30)
[2020-12-08] MEDS ORDERED: [UNRECOGNIZED DRUG - OTHER] IV ONE (12:30)
[2020-12-08] MEDS: ATORVASTATIN 40 MG TABLET PO SCH (20:04)
[2020-12-09] MEDS: MEROPENEM 1 GM in SODIUM CHLORIDE 0.9% 100 ML IV SCH ×3 (00:40→17:29)
[2020-12-09] MEDS: INSULIN LISPRO 100 UNITS/ML, PEN SQ-INSULIN SCH ×4 (04:00→22:00)
[2020-12-09] MEDS: PROPOFOL 100 ML IV PRN ×3 (04:38→21:17)
[2020-12-09] MEDS: PANTOPRAZOLE 40 MG IV IVPush SCH ×2 (04:38→17:29)
[2020-12-09 05:04] LABS: BASOPHILS % (AUTO) 1 % (0-1); EOSINOPHILS % (AUTO) 6 % (1-7); LYMPHOCYTES % (AUTO) 8 % (22-44); MEAN CORPUSCULAR HEMOGLOBIN 30.4 pg (27.5-34.5); MEAN CORPUSCULAR HGB CONC 32.5 g/dL (33.2-36.2); MEAN PLATELET VOLUME 9.1 fL (7.4-10.4); MONOCYTES % (AUTO) 9 % (2-9); NEUTROPHILS % (AUTO) 77 % (42-75); PLATELET COUNT 283 x10^3/uL (130-400); RED BLOOD COUNT 4.27 x10^6/uL (4.38-5.82); RED CELL DISTRIBUTION WIDTH 15.1 % (9.4-14.8)
[2020-12-09 05:10] LABS: ANION GAP 3 mmol/L (5-15); CALCIUM 9.8 mg/dL (8.5-10.1); CHLORIDE 113 mmol/L (98-107); CREATININE 0.98 mg/dL (0.7-1.3)
[2020-12-09] MEDS: BUDESONIDE 0.5 MG/2 ML INHA INH SCH ×2 (06:38→21:00)
[2020-12-09] MEDS: GABAPENTIN 100 MG CAPSULE PO SCH ×2 (09:08→21:17)
[2020-12-09] MEDS: AMIODARONE 200 MG TABLET PO SCH ×2 (09:09→21:18)
[2020-12-09] MEDS: MIDODRINE 5 MG TABLET PO SCH ×3 (09:09→21:18)
[2020-12-09] MEDS: ATORVASTATIN 40 MG TABLET PO SCH (21:17)
[2020-12-09] MEDS: ACETAMINOPHEN 325 MG TABLET PO PRN (23:18)
[2020-12-10] MEDS: MEROPENEM 1 GM in SODIUM CHLORIDE 0.9% 100 ML IV SCH ×3 (01:08→18:27)
[2020-12-10] MEDS: INSULIN LISPRO 100 UNITS/ML, PEN SQ-INSULIN SCH ×4 (04:00→22:00)
[2020-12-10 04:25] LABS: BASOPHILS % (AUTO) 2 % (0-1); EOSINOPHILS % (AUTO) 7 % (1-7); LYMPHOCYTES % (AUTO) 8 % (22-44); MEAN CORPUSCULAR HGB CONC 33.2 g/dL (33.2-36.2); MEAN PLATELET VOLUME 9.7 fL (7.4-10.4); MONOCYTES % (AUTO) 9 % (2-9); NEUTROPHILS % (AUTO) 75 % (42-75); PLATELET COUNT 289 x10^3/uL (130-400); RED BLOOD COUNT 4.34 x10^6/uL (4.38-5.82); RED CELL DISTRIBUTION WIDTH 15.3 % (9.4-14.8)
[2020-12-10 04:33] LABS: ANION GAP 3 mmol/L (5-15); CALCIUM 10.2 mg/dL (8.5-10.1); CHLORIDE 114 mmol/L (98-107); CREATININE 1.08 mg/dL (0.7-1.3)
[2020-12-10] MEDS: PANTOPRAZOLE 40 MG IV IVPush SCH ×2 (06:17→18:27)
[2020-12-10] MEDS: BUDESONIDE 0.5 MG/2 ML INHA INH SCH ×2 (06:48→20:21)
[2020-12-10] MEDS: GABAPENTIN 100 MG CAPSULE PO SCH ×2 (08:53→20:40)
[2020-12-10] MEDS: MIDODRINE 5 MG TABLET PO SCH ×3 (08:54→20:40)
[2020-12-10] MEDS: AMIODARONE 200 MG TABLET PO SCH ×2 (08:54→20:40)
[2020-12-10] MEDS: FENTANYL PF 1,000 MCG in SODIUM CHLORIDE 0.9% 80 ML IV PRN ×2 (11:36→20:40)
--- NOTE | 2020-12-10 12:37 | NUR ---
Tube Feed: Vital HP: goal on propofol: 55 ml/hr, off propofol: 65 ml/hr Addendum: 12/10/20 at [address] Amended: Links added.
[2020-12-10] MEDS: ATORVASTATIN 40 MG TABLET PO SCH (20:40)
[2020-12-11] MEDS: MEROPENEM 1 GM in SODIUM CHLORIDE 0.9% 100 ML IV SCH ×3 (00:32→16:03)
[2020-12-11] MEDS: ACETAMINOPHEN 325 MG TABLET PO PRN (00:39)
[2020-12-11] MEDS: FENTANYL PF 1,000 MCG in SODIUM CHLORIDE 0.9% 80 ML IV PRN ×2 (02:58→14:51)
[2020-12-11] MEDS: INSULIN LISPRO 100 UNITS/ML, PEN SQ-INSULIN SCH ×4 (03:04→22:00)
[2020-12-11 05:13] LABS: ANION GAP 2 mmol/L (5-15); CALCIUM 9.6 mg/dL (8.5-10.1); CHLORIDE 115 mmol/L (98-107); CREATININE 1.08 mg/dL (0.7-1.3); TRIGLYCERIDES 169 mg/dL (50-200)
[2020-12-11 05:14] LABS: BASOPHILS % (AUTO) 1 % (0-1); EOSINOPHILS % (AUTO) 8 % (1-7); LYMPHOCYTES % (AUTO) 9 % (22-44); MEAN CORPUSCULAR HEMOGLOBIN 30.7 pg (27.5-34.5); MEAN CORPUSCULAR HGB CONC 32.6 g/dL (33.2-36.2); MEAN PLATELET VOLUME 9.9 fL (7.4-10.4); MONOCYTES % (AUTO) 7 % (2-9); NEUTROPHILS % (AUTO) 75 % (42-75); PLATELET COUNT 247 x10^3/uL (130-400); RED BLOOD COUNT 4.25 x10^6/uL (4.38-5.82); RED CELL DISTRIBUTION WIDTH 15.3 % (9.4-14.8)
[2020-12-11] MEDS: PANTOPRAZOLE 40 MG IV IVPush SCH ×2 (05:25→16:03)
[2020-12-11] MEDS: BUDESONIDE 0.5 MG/2 ML INHA INH SCH ×2 (07:18→21:00)
[2020-12-11] MEDS: MIDAZOLAM HCL 50 MG in SODIUM CHLORIDE 0.9% 40 ML IV PRN ×2 (09:02→21:11)
[2020-12-11] MEDS: MIDODRINE 5 MG TABLET PO SCH ×3 (09:30→20:10)
[2020-12-11] MEDS: AMIODARONE 200 MG TABLET PO SCH ×2 (09:30→20:10)
[2020-12-11] MEDS: GABAPENTIN 100 MG CAPSULE PO SCH ×2 (09:31→20:09)
[2020-12-11] MEDS ORDERED: SODIUM CHLORIDE 0.45%, 1,000ML IV ONE (13:30)
[2020-12-11] MEDS ORDERED: SODIUM CHLORIDE 0.45%, 1,000ML IVBOLUS ONE (13:30)
[2020-12-11] MEDS: NOREPINEPHRINE 8 MG in SODIUM CHLORIDE 0.9% 242 ML IV PRN (17:24)
[2020-12-11] MEDS: ATORVASTATIN 40 MG TABLET PO SCH (20:09)
[2020-12-12] MEDS: MEROPENEM 1 GM in SODIUM CHLORIDE 0.9% 100 ML IV SCH ×3 (00:31→16:34)
[2020-12-12] MEDS: ACETAMINOPHEN 325 MG TABLET PO PRN (01:42)
[2020-12-12] MEDS: INSULIN LISPRO 100 UNITS/ML, PEN SQ-INSULIN SCH ×4 (04:00→22:00)
[2020-12-12 04:52] LABS: BASOPHILS % (AUTO) 0 % (0-1); EOSINOPHILS % (AUTO) 7 % (1-7); LYMPHOCYTES % (AUTO) 8 % (22-44); MEAN CORPUSCULAR HEMOGLOBIN 30.5 pg (27.5-34.5); MEAN CORPUSCULAR HGB CONC 32.5 g/dL (33.2-36.2); MEAN PLATELET VOLUME 10.3 fL (7.4-10.4); MONOCYTES % (AUTO) 7 % (2-9); NEUTROPHILS % (AUTO) 78 % (42-75); PLATELET COUNT 224 x10^3/uL (130-400); RED BLOOD COUNT 3.94 x10^6/uL (4.38-5.82); RED CELL DISTRIBUTION WIDTH 15.4 % (9.4-14.8)
[2020-12-12 04:57] LABS: ANION GAP 4 mmol/L (5-15); CALCIUM 9.1 mg/dL (8.5-10.1); CHLORIDE 112 mmol/L (98-107); CREATININE 1.04 mg/dL (0.7-1.3)
[2020-12-12] MEDS: PANTOPRAZOLE 40 MG IV IVPush SCH ×2 (05:48→16:34)
[2020-12-12] MEDS: BUDESONIDE 0.5 MG/2 ML INHA INH SCH ×2 (07:21→21:00)
[2020-12-12] MEDS: GABAPENTIN 100 MG CAPSULE PO SCH ×2 (09:15→22:25)
[2020-12-12] MEDS: MIDODRINE 5 MG TABLET PO SCH ×3 (09:15→22:24)
[2020-12-12] MEDS: AMIODARONE 200 MG TABLET PO SCH ×2 (09:16→22:24)
[2020-12-12] MEDS: FENTANYL PF 1,000 MCG in SODIUM CHLORIDE 0.9% 80 ML IV PRN (12:03)
[2020-12-12] MEDS: MIDAZOLAM HCL 50 MG in SODIUM CHLORIDE 0.9% 40 ML IV PRN (19:57)
[2020-12-12] MEDS: ALBUTEROL-IPRATROPIUM MDI INH INLINE SCH (21:00)
[2020-12-12] MEDS: ATORVASTATIN 40 MG TABLET PO SCH (22:24)
[2020-12-13] MEDS: MEROPENEM 1 GM in SODIUM CHLORIDE 0.9% 100 ML IV SCH ×4 (02:02→23:55)
[2020-12-13] MEDS: ALBUTEROL-IPRATROPIUM MDI INH INLINE SCH ×2 (03:00→08:38)
[2020-12-13] MEDS ORDERED: VECURONIUM 10 MG IVPush PRN (03:30)
[2020-12-13] MEDS ORDERED: VECURONIUM 50 MG in SODIUM CHLORIDE 0.9% 50 ML IV PRN (03:30)
[2020-12-13] MEDS: MIDAZOLAM HCL 50 MG in SODIUM CHLORIDE 0.9% 40 ML IV PRN ×3 (05:13→17:08)
[2020-12-13] MEDS: INSULIN LISPRO 100 UNITS/ML, PEN SQ-INSULIN SCH ×4 (05:15→21:29)
[2020-12-13 05:30] LABS: BASOPHILS % (AUTO) 1 % (0-1); EOSINOPHILS % (AUTO) 7 % (1-7); LYMPHOCYTES % (AUTO) 6 % (22-44); MEAN PLATELET VOLUME 9.6 fL (7.4-10.4); MONOCYTES % (AUTO) 8 % (2-9); NEUTROPHILS % (AUTO) 78 % (42-75); PLATELET COUNT 203 x10^3/uL (130-400); RED BLOOD COUNT 3.99 x10^6/uL (4.38-5.82); RED CELL DISTRIBUTION WIDTH 14.9 % (9.4-14.8)
[2020-12-13 05:42] LABS: CALCIUM 9.2 mg/dL (8.5-10.1); CHLORIDE 112 mmol/L (98-107)
[2020-12-13 05:43] LABS: CREATININE 0.98 mg/dL (0.7-1.3)
[2020-12-13 05:49] LABS: ANION GAP 2 mmol/L (5-15)
[2020-12-13] MEDS: PANTOPRAZOLE 40 MG IV IVPush SCH ×2 (06:08→21:28)
[2020-12-13] MEDS: FENTANYL PF 1,000 MCG in SODIUM CHLORIDE 0.9% 80 ML IV PRN ×2 (08:15→18:19)
[2020-12-13] MEDS: NOREPINEPHRINE 8 MG in SODIUM CHLORIDE 0.9% 242 ML IV PRN (08:22)
[2020-12-13] MEDS: AMIODARONE 200 MG TABLET PO SCH ×2 (08:37→21:29)
[2020-12-13] MEDS: GABAPENTIN 100 MG CAPSULE PO SCH ×2 (08:37→21:28)
[2020-12-13] MEDS: MIDODRINE 5 MG TABLET PO SCH ×3 (08:38→21:29)
[2020-12-13] MEDS: BUDESONIDE 0.5 MG/2 ML INHA INH SCH ×2 (09:00→21:00)
[2020-12-13] MEDS ORDERED: METHYLNALTREXONE 12 MG/0.6 ML SYR SQ PRN (10:30)
[2020-12-13] MEDS: ATORVASTATIN 40 MG TABLET PO SCH (21:28)
[2020-12-13] MEDS ORDERED: DOCUSATE 50 MG/5 ML, 10ML UDC ONE (23:53)
[2020-12-13] MEDS: DOCUSATE 50 MG/5 ML, 10ML UDC PO PRN (23:57)
[2020-12-14] MEDS: MIDAZOLAM HCL 50 MG in SODIUM CHLORIDE 0.9% 40 ML IV PRN (01:37)
[2020-12-14] MEDS: INSULIN LISPRO 100 UNITS/ML, PEN SQ-INSULIN SCH ×4 (03:38→21:13)
[2020-12-14 03:44] LABS: BASOPHILS % (AUTO) 1 % (0-1); EOSINOPHILS % (AUTO) 5 % (1-7); LYMPHOCYTES % (AUTO) 8 % (22-44); MEAN CORPUSCULAR HEMOGLOBIN 30.2 pg (27.5-34.5); MEAN CORPUSCULAR HGB CONC 32.5 g/dL (33.2-36.2); MEAN PLATELET VOLUME 9.9 fL (7.4-10.4); MONOCYTES % (AUTO) 7 % (2-9); NEUTROPHILS % (AUTO) 80 % (42-75); PLATELET COUNT 187 x10^3/uL (130-400); RED BLOOD COUNT 3.63 x10^6/uL (4.38-5.82)
[2020-12-14 03:54] LABS: ANION GAP 3 mmol/L (5-15); CALCIUM 8.3 mg/dL (8.5-10.1); CHLORIDE 114 mmol/L (98-107); TRIGLYCERIDES 141 mg/dL (50-200)
[2020-12-14] MEDS: FENTANYL PF 1,000 MCG in SODIUM CHLORIDE 0.9% 80 ML IV PRN ×3 (05:54→22:59)
[2020-12-14] MEDS ORDERED: ALBUTEROL/IPRATROPIUM 2.5MG/0.5MG, 3 ML ONE ×2 (06:33→12:49)
[2020-12-14] MEDS: MIDAZOLAM HCL 100 MG in SODIUM CHLORIDE 0.9% 80 ML IV PRN ×2 (08:25→20:56)
[2020-12-14] MEDS ORDERED: FUROSEMIDE 40 MG/4 ML IV ONE (09:00)
[2020-12-14] MEDS: BUDESONIDE 0.5 MG/2 ML INHA INH SCH ×2 (09:00→21:00)
[2020-12-14] MEDS ORDERED: POTASSIUM CHLORIDE 20 MEQ PACKET PO ONE (09:00)
[2020-12-14] MEDS: PANTOPRAZOLE 40 MG IV IVPush SCH ×2 (09:32→20:57)
[2020-12-14] MEDS: GABAPENTIN 100 MG CAPSULE PO SCH ×2 (09:32→20:58)
[2020-12-14] MEDS: AMIODARONE 200 MG TABLET PO SCH ×2 (09:33→20:57)
[2020-12-14] MEDS: MIDODRINE 5 MG TABLET PO SCH ×3 (09:33→20:58)
[2020-12-14] MEDS ORDERED: methylPREDNISolone SOD SUCC 125 MG/2 ML ONE (11:42)
[2020-12-14] MEDS: DOCUSATE 50 MG/5 ML, 10ML UDC PO PRN (11:47)
[2020-12-14] MEDS: methylPREDNISolone SOD SUCC 125 MG/2 ML IVPush SCH (11:47)
[2020-12-14] MEDS: MEROPENEM 1 GM in SODIUM CHLORIDE 0.9% 100 ML IV SCH (11:47)
[2020-12-14] MEDS ORDERED: methylPREDNISolone SOD SUCC 125 MG/2 ML IVPush ONE (12:00)
[2020-12-14] MEDS: ATORVASTATIN 40 MG TABLET PO SCH (20:57)
[2020-12-14] MEDS: ALBUTEROL/IPRATROPIUM 2.5MG/0.5MG, 3 ML INLINE SCH (21:00)
[2020-12-14] MEDS: NOREPINEPHRINE 8 MG in SODIUM CHLORIDE 0.9% 242 ML IV PRN (23:00)
[2020-12-15] MEDS: methylPREDNISolone SOD SUCC 125 MG/2 ML IVPush SCH ×2 (00:17→10:27)
[2020-12-15] MEDS: ALBUTEROL/IPRATROPIUM 2.5MG/0.5MG, 3 ML INLINE SCH ×4 (01:40→21:00)
[2020-12-15] MEDS: INSULIN LISPRO 100 UNITS/ML, PEN SQ-INSULIN SCH ×4 (05:11→20:48)
[2020-12-15 05:38] LABS: BASOPHILS % (AUTO) 0 % (0-1); EOSINOPHILS % (AUTO) 0 % (1-7); LYMPHOCYTES % (AUTO) 6 % (22-44); MEAN CORPUSCULAR HEMOGLOBIN 30.8 pg (27.5-34.5); MEAN CORPUSCULAR HGB CONC 32.9 g/dL (33.2-36.2); MEAN PLATELET VOLUME 10.2 fL (7.4-10.4); MONOCYTES % (AUTO) 2 % (2-9); NEUTROPHILS % (AUTO) 92 % (42-75); PLATELET COUNT 158 x10^3/uL (130-400); RED BLOOD COUNT 3.39 x10^6/uL (4.38-5.82); RED CELL DISTRIBUTION WIDTH 15.2 % (9.4-14.8)
[2020-12-15 05:40] LABS: ANION GAP 3 mmol/L (5-15); CALCIUM 8.8 mg/dL (8.5-10.1); CHLORIDE 115 mmol/L (98-107)
[2020-12-15 05:42] LABS: CREATININE 1.12 mg/dL (0.7-1.3)
[2020-12-15] MEDS: FENTANYL PF 1,000 MCG in SODIUM CHLORIDE 0.9% 80 ML IV PRN ×2 (05:54→15:15)
[2020-12-15] MEDS: MIDAZOLAM HCL 100 MG in SODIUM CHLORIDE 0.9% 80 ML IV PRN ×2 (06:15→10:17)
[2020-12-15] MEDS: BUDESONIDE 0.5 MG/2 ML INHA INH SCH ×2 (06:55→21:00)
[2020-12-15] MEDS: AMIODARONE 200 MG TABLET PO SCH ×2 (08:51→20:50)
[2020-12-15] MEDS: GABAPENTIN 100 MG CAPSULE PO SCH ×2 (08:52→20:50)
[2020-12-15] MEDS: MIDODRINE 5 MG TABLET PO SCH ×3 (08:52→20:50)
[2020-12-15] MEDS: FUROSEMIDE 40 MG/4 ML IV SCH (08:52)
[2020-12-15] MEDS: PANTOPRAZOLE 40 MG IV IVPush SCH ×2 (08:52→20:50)
[2020-12-15] MEDS ORDERED: POTASSIUM CHLORIDE 20 MEQ PACKET PO SCH (09:00)
[2020-12-15] MEDS: DOCUSATE 50 MG/5 ML, 10ML UDC PO PRN (10:27)
[2020-12-15] MEDS: ATORVASTATIN 40 MG TABLET PO SCH (20:50)
[2020-12-16] MEDS: methylPREDNISolone SOD SUCC 125 MG/2 ML IVPush SCH ×2 (00:48→12:09)
[2020-12-16] MEDS: ALBUTEROL/IPRATROPIUM 2.5MG/0.5MG, 3 ML INLINE SCH ×4 (02:10→20:11)
[2020-12-16] MEDS: INSULIN LISPRO 100 UNITS/ML, PEN SQ-INSULIN SCH ×4 (04:09→22:23)
[2020-12-16 04:29] LABS: BASOPHILS % (AUTO) 0 % (0-1); EOSINOPHILS % (AUTO) 0 % (1-7); LYMPHOCYTES % (AUTO) 4 % (22-44); MEAN CORPUSCULAR HEMOGLOBIN 30.5 pg (27.5-34.5); MEAN CORPUSCULAR HGB CONC 32.6 g/dL (33.2-36.2); MEAN PLATELET VOLUME 10.4 fL (7.4-10.4); MONOCYTES % (AUTO) 4 % (2-9); NEUTROPHILS % (AUTO) 92 % (42-75); PLATELET COUNT 164 x10^3/uL (130-400); RED BLOOD COUNT 3.57 x10^6/uL (4.38-5.82); RED CELL DISTRIBUTION WIDTH 15.2 % (9.4-14.8)
[2020-12-16 04:41] LABS: CALCIUM 8.9 mg/dL (8.5-10.1); CHLORIDE 115 mmol/L (98-107)
[2020-12-16] MEDS: FENTANYL PF 1,000 MCG in SODIUM CHLORIDE 0.9% 80 ML IV PRN (04:41)
[2020-12-16 04:59] LABS: ANION GAP 4 mmol/L (5-15)
[2020-12-16] MEDS: BUDESONIDE 0.5 MG/2 ML INHA INH SCH ×2 (06:38→20:11)
[2020-12-16] MEDS: GABAPENTIN 100 MG CAPSULE PO SCH ×2 (08:59→21:12)
[2020-12-16] MEDS: FUROSEMIDE 40 MG/4 ML IV SCH (08:59)
[2020-12-16] MEDS: MIDODRINE 5 MG TABLET PO SCH ×3 (08:59→21:12)
[2020-12-16] MEDS: DOCUSATE 50 MG/5 ML, 10ML UDC PO PRN (08:59)
[2020-12-16] MEDS: AMIODARONE 200 MG TABLET PO SCH ×2 (09:00→21:12)
[2020-12-16] MEDS: PANTOPRAZOLE 40 MG IV IVPush SCH ×2 (09:01→21:12)
[2020-12-16] MEDS: FENTANYL IV PRN (13:44)
[2020-12-16] MEDS: SODIUM CHLORIDE 0.9% IV PRN (13:44)
[2020-12-16] MEDS: MIDAZOLAM HCL 100 MG in SODIUM CHLORIDE 0.9% 80 ML IV PRN (13:46)
[2020-12-16] MEDS: ATORVASTATIN 40 MG TABLET PO SCH (21:12)
[2020-12-17] MEDS: ALBUTEROL/IPRATROPIUM 2.5MG/0.5MG, 3 ML INLINE SCH ×5 (02:21→23:16)
[2020-12-17 03:53] LABS: BASOPHILS % (AUTO) 1 % (0-1); EOSINOPHILS % (AUTO) 0 % (1-7); LYMPHOCYTES % (AUTO) 4 % (22-44); MEAN CORPUSCULAR HEMOGLOBIN 30.7 pg (27.5-34.5); MEAN CORPUSCULAR HGB CONC 32.8 g/dL (33.2-36.2); MEAN PLATELET VOLUME 9.8 fL (7.4-10.4); MONOCYTES % (AUTO) 7 % (2-9); NEUTROPHILS % (AUTO) 88 % (42-75); PLATELET COUNT 140 x10^3/uL (130-400); RED BLOOD COUNT 3.44 x10^6/uL (4.38-5.82); RED CELL DISTRIBUTION WIDTH 15.1 % (9.4-14.8)
[2020-12-17 04:02] LABS: ANION GAP 2 mmol/L (5-15); CALCIUM 8.4 mg/dL (8.5-10.1); CHLORIDE 112 mmol/L (98-107)
[2020-12-17 04:03] LABS: CREATININE 1.23 mg/dL (0.7-1.3); TRIGLYCERIDES 162 mg/dL (50-200)
[2020-12-17] MEDS: INSULIN LISPRO 100 UNITS/ML, PEN SQ-INSULIN SCH ×4 (04:17→21:56)
[2020-12-17] MEDS: MIDAZOLAM HCL 100 MG in SODIUM CHLORIDE 0.9% 80 ML IV PRN (04:43)
[2020-12-17] MEDS: BUDESONIDE 0.5 MG/2 ML INHA INH SCH ×2 (06:24→18:58)
[2020-12-17] MEDS: PANTOPRAZOLE 40 MG IV IVPush SCH ×2 (09:20→20:55)
[2020-12-17] MEDS: DOCUSATE 50 MG/5 ML, 10ML UDC PO PRN (09:20)
[2020-12-17] MEDS: MIDODRINE 5 MG TABLET PO SCH ×3 (09:21→20:56)
[2020-12-17] MEDS: GABAPENTIN 100 MG CAPSULE PO SCH ×2 (09:21→20:55)
[2020-12-17] MEDS: AMIODARONE 200 MG TABLET PO SCH ×2 (09:21→20:55)
[2020-12-17] MEDS: FENTANYL IV PRN (14:42)
[2020-12-17] MEDS: SODIUM CHLORIDE 0.9% IV PRN (14:42)
[2020-12-17] MEDS: ATORVASTATIN 40 MG TABLET PO SCH (20:56)
[2020-12-17] MEDS ORDERED: METOPROLOL TARTRATE 25 MG TAB PO SCH (21:00)
[2020-12-18] MEDS: INSULIN LISPRO 100 UNITS/ML, PEN SQ-INSULIN SCH ×2 (03:47→08:43)
[2020-12-18 03:56] LABS: BASOPHILS % (AUTO) 0 % (0-1); EOSINOPHILS % (AUTO) 1 % (1-7); LYMPHOCYTES % (AUTO) 11 % (22-44); MEAN CORPUSCULAR HEMOGLOBIN 30.5 pg (27.5-34.5); MEAN CORPUSCULAR HGB CONC 32.7 g/dL (33.2-36.2); MEAN PLATELET VOLUME 9.8 fL (7.4-10.4); MONOCYTES % (AUTO) 7 % (2-9); NEUTROPHILS % (AUTO) 81 % (42-75); PLATELET COUNT 116 x10^3/uL (130-400); RED BLOOD COUNT 3.57 x10^6/uL (4.38-5.82); RED CELL DISTRIBUTION WIDTH 15.3 % (9.4-14.8)
[2020-12-18 04:01] LABS: ANION GAP 2 mmol/L (5-15); CALCIUM 8.5 mg/dL (8.5-10.1); CHLORIDE 112 mmol/L (98-107); CREATININE 0.93 mg/dL (0.7-1.3)
[2020-12-18] MEDS: MIDODRINE 5 MG TABLET PO SCH (08:46)
[2020-12-18] MEDS: AMIODARONE 200 MG TABLET PO SCH (08:46)
[2020-12-18] MEDS: GABAPENTIN 100 MG CAPSULE PO SCH (08:46)
[2020-12-18] MEDS: PANTOPRAZOLE 40 MG IV IVPush SCH (08:46)
[2020-12-18] MEDS: MIDAZOLAM HCL 100 MG in SODIUM CHLORIDE 0.9% 80 ML IV PRN ×2 (08:52→15:05)
[2020-12-18] MEDS: ALBUTEROL/IPRATROPIUM 2.5MG/0.5MG, 3 ML INLINE SCH ×2 (09:00→13:28)
[2020-12-18] MEDS: BUDESONIDE 0.5 MG/2 ML INHA INH SCH (09:00)
[2020-12-18] MEDS: FENTANYL IV PRN (12:52)
[2020-12-18] MEDS: SODIUM CHLORIDE 0.9% IV PRN (12:52)
[2020-12-18] MEDS ORDERED: morphine SULFATE 10 MG/ML, 1ML ONE (16:22)
[2020-12-18] MEDS ORDERED: LORazepam 2 MG/ML, 1ML ONE (16:22)
[2020-12-18] MEDS ORDERED: MORPHINE SULFATE 4 MG/ML, 1ML IV PRN (16:30)
[2020-12-18] MEDS ORDERED: LORazepam 2 MG/ML, 1ML IV ONE (16:30)
[2020-12-18] MEDS ORDERED: LORazepam 2 MG/ML, 1ML IV PRN (16:30)
[2020-12-18] MEDS ORDERED: morphine SULFATE 10 MG/ML, 1ML IV ONE (16:30)
[2020-12-18] MEDS ORDERED: ONDANSETRON 2MG/ML, 2ML IV PRN (16:30)
== END 2020-12-18 17:15 | DRG 166 ==
LOC: ED 14:40 → EDIP 17:30 → 5SO 20:35 → CSU 11-28 14:27 → CCU 11-29 12:01 → CSU 11-29 12:06 → CCU 12-03 00:58
PROVIDERS: ADMIT Family Medicine; ATTEND Internal Medicine
PROC: 02FR3Z0 Fragmentation of Left Pulmonary Artery, Percutaneous Approach, Ultrasonic (ICD-10-PCS; 2020-11-28)
PROC: 02FQ3Z0 Fragmentation of Right Pulmonary Artery, Percutaneous Approach, Ultrasonic (ICD-10-PCS; 2020-11-28)
PROC: 4A023N6 Measurement of Cardiac Sampling and Pressure, Right Heart, Percutaneous Approach (ICD-10-PCS; 2020-11-28)
PROC: 5A1955Z Respiratory Ventilation, Greater than 96 Consecutive Hours (ICD-10-PCS; principal; 2020-11-29)
PROC: 0BH17EZ Insertion of Endotracheal Airway into Trachea, Via Natural or Artificial Opening (ICD-10-PCS; 2020-11-29)
PROC: 02HV33Z Insertion of Infusion Device into Superior Vena Cava, Percutaneous Approach (ICD-10-PCS; 2020-11-29)
PROC: B548ZZA Ultrasonography of Superior Vena Cava, Guidance (ICD-10-PCS; 2020-11-29)
PROC: 06H03DZ Insertion of Intraluminal Device into Inferior Vena Cava, Percutaneous Approach (ICD-10-PCS; 2020-12-09)
DX: I26.09 Other pulmonary embolism with acute cor pulmonale (principal); J96.21 Acute and chronic respiratory failure with hypoxia; I21.A1 Myocardial infarction type 2; N17.0 Acute kidney failure with tubular necrosis; G93.41 Metabolic encephalopathy; I62.03 Nontraumatic chronic subdural hemorrhage; J69.0 Pneumonitis due to inhalation of food and vomit; I82.411 Acute embolism and thrombosis of right femoral vein; I13.0 Hypertensive heart and chronic kidney disease with heart failure and stage 1 through stage 4 chronic kidney disease, or unspecified chronic kidney disease; I50.32 Chronic diastolic (congestive) heart failure; J44.0 Chronic obstructive pulmonary disease with (acute) lower respiratory infection; J44.1 Chronic obstructive pulmonary disease with (acute) exacerbation; J98.11 Atelectasis; R04.2 Hemoptysis; G96.08 Other cranial cerebrospinal fluid leak; E87.0 Hyperosmolality and hypernatremia; Z66 Do not resuscitate; E11.22 Type 2 diabetes mellitus with diabetic chronic kidney disease; E11.319 Type 2 diabetes mellitus with unspecified diabetic retinopathy without macular edema; E66.9 Obesity, unspecified; E78.5 Hyperlipidemia, unspecified; E87.5 Hyperkalemia; G47.33 Obstructive sleep apnea (adult) (pediatric); I27.20 Pulmonary hypertension, unspecified; I48.0 Paroxysmal atrial fibrillation; I95.9 Hypotension, unspecified; K21.9 Gastro-esophageal reflux disease without esophagitis; L40.9 Psoriasis, unspecified; N18.30 Chronic kidney disease, stage 3 unspecified; Z68.33 Body mass index [BMI] 33.0-33.9, adult; Z79.01 Long term (current) use of anticoagulants; Z86.711 Personal history of pulmonary embolism; Z86.718 Personal history of other venous thrombosis and embolism; Z86.73 Personal history of transient ischemic attack (TIA), and cerebral infarction without residual deficits
CPT/HCPCS: 36415; 36573; 36600; 37191; 37211; 70450; 71045; 76937; 78582; 80048; 80053; 80061; 82803; 82962; 83036; 83690; 83735; 84132; 84145; 84478; 84484; 85025; 85384; 85520; 87040; 87070; 87081; 87205; 93005; 93306; 93308; 93321; 93325; 94002; 94003; 94640; 99156; 99157; 99291; C1769; C1880; C1894; G0378; J1644; J1940; J2185; J2250; J2543; J2704; J3010; J7030; J7060; J7626; P9047; A9540; A9558; C1751; C9113; C9132; J0282; J1815; J2060; J2270; J2930; J7040; J7050